=== PATIENT | female | born 1980 | race Caucasian/White ===

== ENCOUNTER 2017-02-23 11:03 | Emergency (ER) | payer BC ==
[~2017-02-23] VITALS: Ht 170.2 cm; Wt 58.5 kg
[2017-02-23 11:29] LABS: BASOPHILS % (AUTO) 0.7 % (0.0-2.0); EOSINOPHILS # (AUTO) 0.1 K/uL (0.0-0.7); EOSINOPHILS % (AUTO) 1.1 % (0.0-7.0); HEMATOCRIT 34.2 % (37-47); HEMOGLOBIN 10.9 G/DL (12.0-16.0); LYMPHOCYTES # (AUTO) 1.7 K/UL (0.8-4.8); MEAN CORPUSCULAR HEMOGLOBIN 27.2 UUG (27.0-31.0); MEAN CORPUSCULAR HGB CONC 32 g/dL (32.0-37.0); MEAN CORPUSCULAR VOLUME 85.4 FL (81.0-99.0); MONOCYTES # (AUTO) 0.3 K/UL (0.1-1.30); MONOCYTES % (AUTO) 4.8 % (0.0-11.0); NEUTROPHILS # (AUTO) 4.3 K/UL (1.8-8.9); NEUTROPHILS % (AUTO) 67.4 % (38.5-71.5); PLATELET COUNT (AUTO) 224 K/UL (150-450); WHITE BLOOD COUNT (AUTO) 6.4 K/UL (4.0-11.2)
[2017-02-23 11:32] LABS: CREATININE 0.8 mg/dL (0.6-1.3); POTASSIUM 3.9 mmol/L (3.5-5.1)
[2017-02-23 11:38] LABS: BILIRUBIN,TOTAL 0.2 mg/dL (0.2-1.0)
[2017-02-23] MEDS ORDERED: KETOROLAC TROMETHAMINE 30 MG INJ IM ONE (12:00)
--- NOTE | 2017-02-23 12:00 | NUR ---
PATIENT WAS SEEN BY MD FOR C/O CHEST DISCOMFORT. EKG DONE, PALCED ON MONITOR. LABS PENDING.
[2017-02-23] MEDS ORDERED: KETOROLAC TROMETHAMINE 30 MG INJ ONE (12:11)
--- NOTE | 2017-02-23 13:15 | NUR ---
DC, RX AND FOLLOW UP INSTRUCTIONS GIVEN AND EXPLAINED TO PATIENT WHO STATES SHE UNDERSTANDS ALL INSTRUCTIONS.
== END 2017-02-23 13:16 | disposition home or self-care (01) ==
LOC: ER 11:03
DX: S29.011A Strain of muscle and tendon of front wall of thorax, initial encounter (principal); X50.9XXA Other and unspecified overexertion or strenuous movements or postures, initial encounter; Y93.89 Activity, other specified; Y92.9 Unspecified place or not applicable; Y99.9 Unspecified external cause status
CPT/HCPCS: 36415; 70030-TC; 71010; 85025; 85610; 93005; A4663; J1885